=== PATIENT | male | born 1965 | race Caucasian/White ===

== ENCOUNTER 2017-12-16 09:06 | Emergency (ER) ==
[2017-12-16 09:13] VITALS: BP 171/97; TEMP 98; BMI 35.4
--- NOTE | 2017-12-16 09:23 | ED.PDOC ---
General ED Provider: Dr. GABRIELA HOLLINGSWORTH Chief Complaint: Non-specific Complaint Stated Complaint: CC: Rt Groin Pain. HPI: PATIENT STATES HE HAD A HEART CATH AT [facility] APPROX 2 WEEKS AGO. STATES 3 DAYS AGO HE EXPERIENCED CONSIDERABLE PAIN IN RIGHT GROIN AND WENT BACK TO [facility]. STATES HE WAS TOLD HE HAD A BLOOD CLOT IN THAT AREA. PATIENT STATES HE WAS GIVEN PAIN MEDICINE. STATES NOW HE FEELS LUMPS IN HIS RIGHT THIGH Time Seen by Physician: 09:25 Mode of Arrival: Walk-In Information Source: Patient Exam Limitations: No limitations Seen Within Last 72 Hours for Same Complaint By: ED ([facility]) Nursing and Triage Documentation Reviewed and Agree: Yes Reviewed sepsis parameters & appropriate labs ordered?: Yes System Inflammatory Response Syndrome: Not Applicable Sepsis Protocol: For patient's 13 years and over: Temp is 96.8 and below OR 101 and greater Pulse >90 BPM Resp >20/minute Acutely Altered Mental Status Are patient's symptoms suggestive of a new infection, such as: -Pneumonia -Skin, Soft Tissue -Endocarditis -UTI -Bone, Joint Infection -Implantable Device -Acute Abdominal Infection -Wound Infection -Meningitis -Blood Stream Catheter Infection -Unknown Miscellaneous Complaint Exam - Wound Recheck/Suture Removal Exam Date of Procedure: 2 weeks ago at [facility] Cardiac Cath department Surgical Site: Rt Groin Procedure: Cardiac Cath Symptoms Are: Still present Timing: Intermittent Episodes Lasting: Days Initial Severity: Moderate Current Severity: Mild Aggravating: Movement Alleviating: Rest Associated Signs and Symptoms: Reports: Swelling, Pain, Other (States note "lumps in my groin"; Went back to [facility] ER 3days ago, eval, treated and released given Rx [place] and instructions to follow up with Vascular specialist( ? clot at cath Site). ) Wound Findings: Present: Hematoma (Localized swelling at Cath site with scattered Lymphadenopathy, tender, non fluctuant. Puncture site healed.Distal pulsed intact ) Incision: Present: Swollen (Site of arterial puncture Rt Groin healed well; no localized erythrema) Drainage: Present: None Location: Rt Inguinal Region Differential Diagnoses: Hematoma, Other (Normal post cardiac cath access site healing changes) Review of Systems - Review Of Systems Constitutional: Reports: No symptoms Eyes: Reports: No symptoms Ears, Nose, Mouth, Throat: Reports: No symptoms Respiratory: Reports: No symptoms Cardiac: Reports: No symptoms GI: Reports: No symptoms : Reports: No symptoms Musculoskeletal: Reports: No symptoms Skin: Reports: Lumps, Other (swelling) Neurological: Reports: No symptoms All Other Systems: Reviewed and Negative Past Medical History - Past Medical History Previously Healthy: Yes Endocrine: Reports: None Cardiovascular: Reports: None Respiratory: Reports: None Hematological: Reports: None Gastrointestinal: Reports: None Genitourinary: Reports: None Neuro/Psych: Reports: None Musculoskeletal: Reports: None Cancer: Reports: None - Surgical History General Surgical History: Reports: None - Family History Family History: Reports: None - Social History Smoking Status: Current every day smoker Hx Substance Use: No Alcohol Screening: None Lives: With family Physical Exam - Physical Exam Appearance: Well-appearing, No pain distress, Well-nourished, Obese Ill-appearing: None Pain Distress: None Eyes: BALTAZAR, EOMI, Conjunctiva clear ENT: Ears normal, Nose normal, Oropharynx normal Respiratory: Airway patent, Breath sounds clear, Breath sounds equal, Respirations nonlabored Cardiovascular: RRR, Pulses normal, No rub, No murmur GI/: Soft, Nontender, No masses, Bowel sounds normal, No Organomegaly Musculoskeletal: Normal strength, ROM intact, No edema, No calf tenderness Skin: Warm (Rt inguinal region mildly edematous, non erythematous, no drainage) , Dry, Normal color Neurological: Sensation intact, Motor intact, Reflexes intact, Cranial nerves intact, Alert, Oriented Psychiatric: Affect appropriate, Mood appropriate Critical Care Note - Critical Care Note Total Time (mins): 60 (Monitored patient, reviewed outside records and lab, spoke with ER Physician at [facility] and initiated transfer procedings. ) Course - Course Hematology/Chemistry: 12/16/17 10:30 12/16/17 10:30 Orders, Labs, Meds: Lab Review 12/16/17 12/16/17 12/16/17 10:30 10:30 10:30 WBC 7.33 RBC 4.69 L Hgb 14.5 Hct 42.2 MCV 90.0 MCH 30.9 MCHC 34.4 RDW Coeff of Mary 13.1 Plt Count 234 Immature Gran % (Auto) 0.1 Neut % (Auto) 54.1 Lymph % (Auto) 26.3 [place] % (Auto) 14.1 H Eos % (Auto) 4.4 Baso % (Auto) 1.0 Immature Gran # (Auto) 0.0 Neut # (Auto) 4.0 Lymph # (Auto) 1.9 [place] # (Auto) 1.0 Eos # (Auto) 0.3 Baso # (Auto) 0.1 PT 10.6 INR 1.06 APTT 25.4 Sodium 138 Potassium 3.8 Chloride 106 Carbon Dioxide 24 Anion Gap 11.8 BUN 9 Creatinine 0.75 Estimated GFR (MDRD) 110.00 BUN/Creatinine Ratio 12.00 Glucose 105 H Calcium 8.9 Total Bilirubin 1.7 H AST 16 ALT 21 Alkaline Phosphatase 68 Total Protein 6.7 Albumin 3.2 L Globulin 3.5 Albumin/Globulin Ratio 0.91 Orders Category Date Time Status CBC W/ AUTO DIFF Stat LAB 12/16/17 10:30 Completed COMPREHENSIVE METABOLIC PANEL Stat LAB 12/16/17 10:30 Completed PT WITH INR Stat LAB 12/16/17 10:30 Completed PTT [PARTIAL THROMBOPLASTIN TIME] Stat LAB 12/16/17 10:30 Completed Vital Signs: Temp Pulse Resp BP Pulse Ox 12/16/17 09:08 98.0 F 84 16 171/97 H 98 Departure - Departure Time of Disposition: 11:55 Disposition: TSF OTHER Discharge Problem: Right groin pain, Pseudoaneurysm of femoral artery, Pseudoaneurysm following procedure Instructions: Pseudoaneurysm (ED) Condition: Good Pt referred to PMD for follow-up: No IPMP verified?: No Allergies/Adverse Reactions: Allergies Penicillins Adverse Reaction (Verified 12/16/17 09:13) Home Medications: Ambulatory Orders 1 [No Reported Medications] 12/16/17 Transfer Form Completed: Yes Disposition Discussed With: Patient Musculoskeletal Complaint Exam - Hip/Pelvis Complaint/Exam Location of Pain: Reports: Right Mechanism of Injury: Reports: No known trauma Onset/Duration: 4-5 days Symptoms Are: Still present Initial Severity: Moderate Current Severity: Moderate Location: Reports: Discrete Character: Reports: Dull, Aching, Burning Aggravating: Reports: Movement Alleviating: Reports: Rest Associated Signs and Symptoms: Reports: Swelling. Denies: Redness, Bruising, Fever Related History: Reports: Similar episode Able to Bear Weight: Yes Septic Arthritis Risk Factors: Reports: None Related Surgical History: Reports: None (Cardiac cath) Pelvis Palpation: Stable Tenderness: Present: Right (groin) Range of Motion Limited In: Absent: Flexion, Extension, Abduction, Adduction, Internal rotation NV Bundle Intact Distal to Injury: No Differential Diagnoses: Hematoma, Other (post cardiac cath vascular changes; Recent US evidence Pseueo aneurysm at [facility]) Additional Information: Discussed with patient findings from the ER at [facility], 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 In addition patient states he did not call or attempt to follow up with the recommended vascular specialist Dr Blackburn the following as directed, stating he did not understand the instructiion.. Patient currently continues to complain of pain in Rt Groin Discussed case and the patient with current [facility] ER Physician Dr Dejesus; Advised we have no ability to complete further evaluation of the patient including repeat vascular scan He agreed to accept patient in transfer for further evaluation. Discussed and explained with patient who agrees with transfer.
== END 2017-12-16 12:53 | disposition short-term general hospital (02) ==
LOC: ED 09:06
DX: I72.4 Aneurysm of artery of lower extremity (principal); R10.31 Right lower quadrant pain; Z98.890 Other specified postprocedural states; F17.210 Nicotine dependence, cigarettes, uncomplicated
CPT/HCPCS: 36415; 80053; 85025; 85610; 85730; 99285

== ENCOUNTER 2017-12-16 12:55 | Outpatient (CLI) ==
[2017-12-16 09:13] VITALS: BMI 35.4
== END 2017-12-16 13:12 | disposition short-term general hospital (02) ==
LOC: AMBL 12:55
PROVIDERS: ATTEND Internal Medicine Geriatric Medicine
DX: G89.18 Other acute postprocedural pain (principal); M79.89 Other specified soft tissue disorders